=== PATIENT | male | born 1960 | race Caucasian/White ===

== ENCOUNTER 2019-10-29 15:26 | Emergency (ER) | payer OTHER ==
[~2019-10-29] VITALS: Ht 182.9 cm; Wt 90.7 kg
== END 2019-10-29 16:17 | disposition home or self-care (01) ==
LOC: ER 15:26
DX: S61.012A Laceration without foreign body of left thumb without damage to nail, initial encounter (principal); Z23 Encounter for immunization; W27.0XXA Contact with workbench tool, initial encounter
CPT/HCPCS: 12001; 90471; 90714; 99282-25

== ENCOUNTER 2023-11-04 05:55 | Day surgery (SDC) | payer OTHER ==
[~2023-11-04] VITALS: Ht 180.3 cm; Wt 93.3 kg
[~2023-11-04 05:55] MED LIST: Calcium Carbon500 MG PO; GLUCHON PO; LISI5 PO; MULVITA PO; TAMS.4ER PO; Vitamin C100 M1 PO
[2023-11-04] MEDS ORDERED: CeFAZolin Sodium 2,000 MG in NS 100 ML IV SCH (06:15)
[2023-11-04] MEDS ORDERED: Lactated Ringer's 1,000 ML IV SCH (06:15)
[2023-11-04 06:36] VITALS: BP 155/88
[2023-11-04] MEDS ORDERED: FentaNYL Citrate 50 MCG/ML 2 ML Injection ONE ×2 (06:53→08:18)
[2023-11-04] MEDS ORDERED: propofoL 20 ML IV ONE (06:53)
[2023-11-04] MEDS ORDERED: Lidocaine HCl 2% 20 ML MDV ONE (06:54)
[2023-11-04] MEDS ORDERED: Midazolam HCl 1MG / ML 2ML Vial IV ONE (07:05)
[2023-11-04] MEDS ORDERED: Bupivacaine 0.5% Inj 50 ML Vial ONE (07:12)
[2023-11-04] MEDS ORDERED: Ondansetron HCl 2 MG / ML 2ML Vial IV PRN (07:15)
[2023-11-04] MEDS ORDERED: FentaNYL Citrate 50 MCG/ML 2 ML Injection IV PRN ×3 (07:15)
[2023-11-04] MEDS ORDERED: Phenylephrine HCl 100 MCG/ML-NS 10MLSYR (1MG/10ML) ONE (07:38)
[2023-11-04] MEDS ORDERED: ePHEDrine Sulfate 50 MG/ML 1ML Injection ONE (07:45)
[2023-11-04] MEDS ORDERED: Flumazenil 0.1 MG / ML 5ML Vial ONE (08:50)
[2023-11-04 08:56] VITALS: BP 156/69
[2023-11-04 09:00] VITALS: BP 136/76
[2023-11-04 09:05] VITALS: BP 128/76
[2023-11-04] MEDS ORDERED: HYDROcodone 5-APAP 325 TAB PO PRN (09:05)
[2023-11-04 09:10] VITALS: BP 135/82
[2023-11-04 09:22] VITALS: BP 133/88
--- NOTE | 2023-11-04 10:01 | NUR ---
Discharge instructions reviewed with patient. Patient verbalizes understanding. Copy given to patient to take home. Dressing to procedure site clean, dry, intact with no visible drainage, swelling, erythema or bruising noted. Ice pack sent home with patient.
== END 2023-11-04 10:02 | disposition home or self-care (01) ==
LOC: ORSCMMR 05:55 → ORD 07:30 → ORSCMMR 10:02
PROVIDERS: Surgery
PROC: 0YU60JZ Supplement Left Inguinal Region with Synthetic Substitute, Open Approach (ICD-10-PCS; principal; 2023-11-04 07:30)
DX: K40.90 Unilateral inguinal hernia, without obstruction or gangrene, not specified as recurrent (principal); I10 Essential (primary) hypertension; J44.9 Chronic obstructive pulmonary disease, unspecified; N40.0 Benign prostatic hyperplasia without lower urinary tract symptoms; Z79.899 Other long term (current) drug therapy
CPT/HCPCS: A9270; C1781; J0690; J2250; J2371; J2704; J3010; J7120